=== PATIENT | female | born 1935 | race Caucasian/White ===

== ENCOUNTER 2016-09-20 06:42 | Day surgery (SDC) | payer MEDICARE ==
[~2016-09-20] VITALS: Ht 157.5 cm; Wt 81.7 kg
--- NOTE | ~2016-09-20 | OR ---
PATIENT'S NAME: L[facility] AGE: 81 Y [address] ROOM: [place] [address] LOCATION: GPCU ADMIT DATE: 09/20/2016 OR/Procedure Report DISCHARGE DATE: 09/21/2016 FAMILY PHYSICIAN: Santos Malik MD ATTENDING PHYSICIAN: Sivakumar Grossman SURGEON: Sivakumar Grossman MD [place] [facility]: DATE OF PROCEDURE: 09/20/2016 PROCEDURE: Procedure single-chamber pacemaker implantation INDICATION: Sick sinus syndrome in the setting of chronic atrial fibrillation PROCEDURE/FINDINGS: The patient was brought to the cardiac photographic laboratory technician in the fasting state and prepped and draped in the normal manner. 1% lidocaine was used for local skin infiltration of the left infraclavicular region. Following this, 18 gauge Cook needle was advanced into the left subclavian vein. 0.025 wire was placed. Needle was removed. Proximal end of the wire was attached to the surgical gown with a hemostat. Attention was then turned towards creation of the pacemaker pocket where additional 1% lidocaine was given. #11 blade was used for primary skin incision. Using Bovie cautery as well as blunt dissection pectoralis fascia was identified. This was entered into and dissected both cephalad as well as caudally. Following this the previously placed 0.025 wires were brought through the skin into the pacemaker pocket on which a 6F sheath was placed. The wire and dilator were removed. Using fluoroscopic guidance, right ventricular lead was placed. This is a [employer], INGEVITY, model #7741, serial #[id number]. Thresholds were obtained showing intrinsic R wave 1.9 mV, threshold 0.6 volts at 0.4 milliseconds pulse with impedance of 706 ohms. Next, the shoulder sleeve was anchored to the pectoralis muscle using two interrupted sutures of zero of Silk. Following this the lead was then connected to the pacemaker generator which is a [employer] ESSENTIO, model #L110, serial #[id number]. The generator with the connected lead was placed into the pacemaker pocket. Subcutaneous tissue was closed with 2-0 Vicryl in running fashion. Following this, subcuticular layer was closed with 4.0 Vicryl also in running fashion. Steri-Strips were applied as well as a Tegaderm dressing. The patient was placed into a shoulder immobilizer prior to the start of the study. There were no complications. CONCLUSION: 1. Single chamber pacemaker implantation for sick sinus syndrome in the setting of chronic atrial fibrillation. 2. Patient is instructed to wear the shoulder immobilizer for the next one week and to not lift with her left arm. PATIENT'S NAME: LYLE [facility]ILLALBA [facility] AGE: 81 Y [address] ROOM: [place] [address] LOCATION: GPCU ADMIT DATE: 09/20/2016 OR/Procedure Report DISCHARGE DATE: 09/21/2016 FAMILY PHYSICIAN: Santos Malik MD ATTENDING PHYSICIAN: Sivakumar Grossman 3. Patient will be instructed on use of the home remote monitoring [employer] system. MD SCOTTY PAZ/azra /[id number] CC: Printer CARDIOPULMINARY d: 09/22/16 1001 t: 09/23/16 1159, OPERATIVE SUMMARY
[~2016-09-20 06:42] MED LIST: AMITIZA24 MCG PO; AMOXICILLIN500 M1 PO; ATIVAN 1 MG1 MG PO; ATORVASTATIN CA10 MG PO; BENADRYL25 MG PO; BENADRYL50 MG PO; BUTRANS1 EAC1 TOP; CARAFATE1 GM PO; CLARITIN10 MG PO; COLACE100 MG PO; COZAAR50 MG PO; ESTROPIPATE0.75 MG PO; FEOSOL325 MG PO; HUMIBID LA (MU600 MG PO; HYDROCHLOROTH12.5 MG PO; LEVOTHYROXINE200 MC1 PO; LEVOTHYROXINE25 MCG PO; LOPRESSOR50 MG PO; OXYGEN M-15 INH; PRADAXA150 MG PO; PROTONIX40 MG PO; RANITIDINE HCL150 M1 PO; SENNA LAX8.6 MG PO; SEROQUEL300 MG PO; SERTRALINE HCL100 MG PO; SINGULAIR10 MG PO; TYLENOL EXTRA500 MG PO; ULTRAM50 MG PO; VITAMIN D5000 UNIT PO; [UNRECOGNIZED DRUG - OTHER] PO
--- NOTE | 2016-09-20 17:10 | NUR ---
A&O-FORGETFUL. 1PA. SBP 140'S-210'S. HR 60'S-90'S. 2L 02 PER HOME. AFEBRILE. LS CLEAR. VD PER BR. BM TODAY. CSM N/T TO BILAT HANDS AND FEET. 1+ EDEMA THROUGHOUT. STARTED NITRO GTT WHEN CAME OF FROM PACE BC WAS 200'S/100'S TITRATE TO KEEP SBP <160'S. NITRO NOW OFF.
--- NOTE | 2016-09-21 04:27 | NUR ---
Significant Event: A/O, SBP 130-160s, HR pacing 60-70s, 2L O2 per home dose, dressing to L)subclavian c.d.i, arm immobilizer intact, 1 assist to BR, chronic back and R)shoulder pain Follow up: D/C back to [facility] today
[2016-09-21] MEDS ORDERED: CHOLESTYRAMINE L4 GM PO (09:32)
[2016-09-21] MEDS ORDERED: PEPCID20 MG PO (09:41)
[2016-09-21] MEDS ORDERED: LOPRESSOR25 MG PO (10:58)
--- NOTE | 2016-09-21 11:07 | NUR ---
Patient alert and oriented X 3. Forgetful at times. Pacemaker inserted on 09/20/2016 by MIKE Grossman. 2 L 02 via NC. No lifting L arm. Ice pack to L shoulder PRN. Immobilizer to L arm. VSS. Pacer site WNL. To dismiss to [place] today.
== END 2016-09-21 15:45 ==
LOC: GPCU 06:42 → GPOC 06:42 → GPCU 09:39 → GPOC 16:00
PROC: 0JH604Z Insertion of Pacemaker, Single Chamber into Chest Subcutaneous Tissue and Fascia, Open Approach (ICD-10-PCS; principal; 2016-09-20)
PROC: 02HK3JZ Insertion of Pacemaker Lead into Right Ventricle, Percutaneous Approach (ICD-10-PCS; 2016-09-20)
DX: I49.5 Sick sinus syndrome (principal); I48.2 Chronic atrial fibrillation; I10 Essential (primary) hypertension; E78.5 Hyperlipidemia, unspecified; I73.9 Peripheral vascular disease, unspecified; J45.909 Unspecified asthma, uncomplicated; K59.00 Constipation, unspecified; K21.9 Gastro-esophageal reflux disease without esophagitis; K44.9 Diaphragmatic hernia without obstruction or gangrene; F32.9 Major depressive disorder, single episode, unspecified; F41.9 Anxiety disorder, unspecified; E07.9 Disorder of thyroid, unspecified; M19.90 Unspecified osteoarthritis, unspecified site; M54.16 Radiculopathy, lumbar region; G25.81 Restless legs syndrome; Z79.899 Other long term (current) drug therapy; Z90.49 Acquired absence of other specified parts of digestive tract; Z90.710 Acquired absence of both cervix and uterus
CPT/HCPCS: C1786; C1898; J0690; J2001; J2250; J3010; J7030